=== PATIENT | female | born 1985 | race Caucasian/White ===

== ENCOUNTER 2016-11-15 18:52 | Inpatient (IN) ==
[2016-11-15 19:24] LABS: Apearance,Urine CLOUDY (Clear); Bilirubin,Urine Negative (Negative); Blood, Urine Negative (Negative); Glucose,Urine (UA) Negative (Negative); Ketones,Urine 80 mg/dL (Negative); Mucus,Urine Occasional /LPF (Occasional); Nitrite,Urine Negative (Negative); Protein,Urine 30 MG/DL; RBC,Urine 1 /HPF (0-4); Squamous Epithelial Cell,Urine Few /HPF (0-10); Urine Color Yellow (Yellow); Urine Specific Gravity 1.023 (1.001-1.035); Urine Urobilinogen < 2.0 EU/DL (0.2-1.0); WBC,Urine 15 /HPF (0-6)
[2016-11-15] MEDS ORDERED: CITRIC ACID/SODIUM CITRATE 30 ML UDCUP PO ONE (20:23)
[2016-11-15] MEDS ORDERED: FAMOTIDINE 20 MG/2 ML VIAL IV ONE (20:23)
[2016-11-15] MEDS ORDERED: ceFAZolin 2,000 MG in SODIUM CHLORIDE 0.9% 100 ML IV ONE (20:23)
[2016-11-15] MEDS ORDERED: OXYTOCIN/LR 20 UNIT/1,000 ML BAG IV ONE ×2 (20:47→22:57)
[2016-11-15 20:53] LABS: Basophils % 0.1 % (0.0-0.8); Hematocrit 37.8 VOL% (35.7-47.0); Immature Granulocytes % 0.4 %; Immature Granulocytes Absolute 0.05 #; Lymphocytes # 0.6 10*3/uL (1.4-4.0); Lymphocytes % 4.8 % (21.3-54.2); Mean Corpuscular HGB Conc 31.7 GM/DL (32-36); Mean Corpuscular Hemoglobin 28 PG (27-34); Mean Corpuscular Volume 87.3 FL (87-102); Mean Platelet Volume 12.2 FL (9.6-12.0); Monocytes # 0.2 10*3/uL (0.11-0.8); Monocytes % 1.6 % (1.7-12.7); Neutrophils # 12.2 10*3/uL (1.4-7.4); Neutrophils % 93.1 % (38.7-73.9); Platelet Count 228 10*3/uL (130-400); Red Blood Count 4.33 10*6/uL (3.8-5.5); Red Cell Distribution Width 13.1 % (9.3-17.3); White Blood Count 13.1 10*3/uL (4.5-13.71)
[2016-11-15] MEDS: LACTATED RINGERS 1,000 ML IV SCH ×2 (21:00→21:26)
[2016-11-15 21:10] LABS: INR 0.9; PT Patient Result 9.4 SECS; Partial Thromboplastin Time 27.7 SECS (0-40)
[2016-11-15 21:15] LABS: Albumin 2.9 G/DL (3.4-5.0); Bilirubin,Total 0.5 MG/DL (0.2-1.0); Calcium 8.7 MG/DL (8.5-10.1); Osmolality,Calculated 281.1 MOS/KG (273-304); Total Protein 6.6 G/DL (6.4-8.3)
--- NOTE | 2016-11-15 21:35 | OB/GYN History & Physical ---
History of Present Illness History of present illness: Ms. Wheatley is a 31 year old female Pt. 31y/o @ 38+4wks with h/o previous delivery presents to labor and delivery with contractions and flu like symptoms since this am. Pt. denies any vaginal bleeding, leakage of fluid or decreased movement. Patient's care with Dr. 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 admit to labor and delivery 2. pt. previously scheduled for a repeat delivery with dr. Anthony. Will consent for repeat delivery with risk of bleeding, infection, bowel or bladder injury, hysterectomy. All questions answered. consent signed and witnessed. 3. labs 4. continous external monitoring. Current Visit: Yes (2) Anxiety Status: Acute Current Visit: Yes Results - Labs CBC & BMP: 11/15/16 20:42 11/15/16 20:45
[2016-11-15 21:38] LABS: Lymphocytes 4 % (20-55); Segmented Neutrophils 96 % (50-85); Total Cells Counted 100
[2016-11-15 21:39] LABS: Ovalocytes Slight; Platelet Estimate Adequate; Polychromasia Slight
[2016-11-15 22:30] LABS: Apearance,Urine Slightly Hazy (Clear); Bilirubin,Urine Negative (Negative); Blood, Urine Negative (Negative); Glucose,Urine (UA) Negative (Negative); Hyaline Casts,Urine 3 /LPF (0-3); Ketones,Urine 80 mg/dL (Negative); Mucus,Urine Occasional /LPF (Occasional); Nitrite,Urine Negative (Negative); Protein,Urine 30 MG/DL; RBC,Urine 3 /HPF (0-4); Squamous Epithelial Cell,Urine Occasional /HPF (0-10); Urine Color Yellow (Yellow); Urine Specific Gravity 1.024 (1.001-1.035); Urine Urobilinogen < 2.0 EU/DL (0.2-1.0); WBC,Urine 2 /HPF (0-6)
[2016-11-15] MEDS ORDERED: TISSUE ADHESIVE 1 EACH APPLICATOR TOP ONE ×2 (22:33→22:35)
--- NOTE | 2016-11-15 22:51 | Operative Note ---
Date of procedure: 11/15/16 Pre-op diagnosis: Pt. 31y/o @ 38+4 wks with hx of prev c/s x1 in early labor Post-op diagnosis: same Procedure: OPERATION: Repeat delivery x 2 and lysis of pelvic adhesion FINDINGS: A living male infant, vertex , RK position, weight 7lbs 4oz, scores 5 and 8, nuchal cord x 2, body cord x 1. DESCRIPTION OF PROCEDURE: The patient was brought to the operating room after her spinal preparation, and Cuello had been performed. The abdomen was prepped and draped in the normal sterile fashion and tested for analgesia. When found to be adequate, a low-abdominal Pfannenstiel incision was made with the first knife and carried down to the fascia with the bovie. The fascia was cleared of subcutaneous tissue. Bleeding points were clamped with hemostats and Bovie coagulated. The fascia was incised in the midline and extended laterally with curved Leon scissors. Najma clamps were placed on the fascial edge, anteriorly. The rectus muscles were by sharp dissection. The rectus muscles were divided in the midline by sharp dissection and adhesions lysed. The parietoperitoneum was grasped with hemostats and carefully entered and the incision extended with Metzenbaum scissors. The bladder blade was inserted. The visceroperitoneum was grasped with smooth pickups, entered with Metzenbaum scissors, and extended laterally. The bladder flap was created by gentle blunt dissection and placed behind the bladder blade. The lower uterine segment was carefully incised with a scalpel and extended laterally with bandage scissors. A living male infant was delivered atraumatically from the vertex presentation. The baby was suctioned and cried immediately, and was handed to the pediatric team in attendance. The placenta was delivered with gentle uterine massage. The uterus was explored with a wet lap sponge and found to be clear of membranes. The angles of the incision were sutured 0 vicryl in a locked running fashion. Hemostasis was carefully checked and found to be satisfactory. The fallopian tubes and ovaries were inspected and found to be normal bilaterally. Interceed was then placed over the uterine incision. The peritoneum was approximated using 2. 0 chromic in a running fashion. The muscle was reapproximated using 2.0 chromic in an interrupted fashion. The fascia was closed with 0-Vicryl in a running fashion. The subcutaneous tissue was approximated with interrupted 2-0 plain catgut. The skin was closed in a subcuticular fashion with 4.0 monocryl. The patient was transferred to the recovery room in good condition. Anesthesia: spinal Surgeon / Physician: Marj Kincaid Estimated blood loss: other (700cc) Specimens: other (placenta, cord, membranes) Condition: stable Disposition: observation Results - Labs CBC & BMP: 11/15/16 20:42 11/15/16 20:45 Discharge Plan - Discharge Medications No Action Multivitamin () [ Vitamin] 1 tablet PO DAILY - Follow Up or Referral - Forms/Instructions
--- NOTE | 2016-11-15 22:54 | Anesthesia ---
Anesthesia Post OP - Post Ansesthetic Evaluation Patient seen in post op: Yes Resp: within normal limits CV: within normal limits Mental: within normal limits Temp: within normal limits Vyzy-[id number]: within normal limits Nausea and Vomiting: within normal limits Pain: within normal limits
[2016-11-15] MEDS ORDERED: fentaNYL 100 MCG/2 ML VIAL ONE (22:55)
[2016-11-15] MEDS ORDERED: MORPHINE 10 MG/10 ML VIAL ONE (22:56)
[2016-11-15] MEDS ORDERED: RHO(D) IMMUNE GLOBULIN 300 MCG SYRINGE IM ONE (22:57)
[2016-11-15] MEDS ORDERED: ACETAMINOPHEN 325 MG TABLET PO PRN (22:57)
[2016-11-15] MEDS ORDERED: SIMETHICONE CHEW 80 MG TABLET PO PRN (22:57)
[2016-11-15] MEDS ORDERED: MAGNESIUM HYDROXIDE SUSP 30 ML UDCUP PO PRN (22:57)
[2016-11-15] MEDS ORDERED: ONDANSETRON 4 MG/2 ML VIAL IV PRN (22:57)
[2016-11-15] MEDS ORDERED: LACTATED RINGERS 1,000 ML IV SCH (23:00)
[2016-11-15] MEDS ORDERED: HYDROmorphone 2 MG/1 ML VIAL IV PRN (23:47)
[2016-11-15] MEDS ORDERED: MEPERIDINE 25 MG/1 ML VIAL IV ONE (23:47)
[2016-11-16 06:23] LABS: Basophils % 0.3 % (0.0-0.8); Hematocrit 29.4 VOL% (35.7-47.0); Immature Granulocytes % 0.4 %; Immature Granulocytes Absolute 0.04 #; Lymphocytes # 0.9 10*3/uL (1.4-4.0); Mean Corpuscular HGB Conc 32.3 GM/DL (32-36); Mean Corpuscular Hemoglobin 28 PG (27-34); Mean Corpuscular Volume 86.7 FL (87-102); Monocytes # 0.5 10*3/uL (0.11-0.8); Neutrophils # 8.6 10*3/uL (1.4-7.4); Neutrophils % 85.3 % (38.7-73.9); White Blood Count 10.1 10*3/uL (4.5-13.71)
[2016-11-16 06:36] LABS: Hemoglobin 9.5 GM/DL (12.0-16.0); Platelet Count 167 10*3/uL (130-400); Red Blood Count 3.39 10*6/uL (3.8-5.5)
[2016-11-16] MEDS: LACTATED RINGERS 1,000 ML IV SCH (08:30)
[2016-11-16] MEDS: MULTIVITAMIN (PRENATAL) TABLET PO SCH (09:57)
[2016-11-16] MEDS: DOCUSATE SODIUM 100 MG CAPSULE PO SCH ×2 (09:57→19:35)
[2016-11-16] MEDS: IBUPROFEN 800 MG TABLET PO PRN ×2 (12:25→22:30)
[2016-11-16] MEDS ORDERED: HYDROCORTISONE 1% CREAM 28 GM TUBE TOP PRN (12:43)
--- NOTE | 2016-11-16 13:27 | OB/GYN Progress Note ---
Assessment and Plan (1) Previous delivery affecting , antepartum Status: Acute Assessment and plan: 1. ambulate 2. incentive spirometer 3. pain management. 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 seen by bedside, denies any complaints. no nausea or vomiting. no fever or chills. no chest pain or shortness of breath. Pt. ambulating and tolerating regular diet. 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[employer] - Constitutional Vitals: Vital Signs Temp Pulse Resp BP Pulse Ox 11/16/16 12:00 99.3 F 86 18 132/89 97 11/16/16 08:00 97.8 F 73 18 118/70 95 11/16/16 04:00 99.4 F 100 H 18 135/82 98 11/16/16 03:15 92 H 20 130/78 99 11/16/16 02:15 83 18 124/67 99 11/16/16 01:45 91 H 18 128/70 99 11/16/16 01:15 99.2 F 99 H 20 129/73 99 11/16/16 00:55 99.1 F 81 18 123/70 97 General appearance: no acute distress - Respiratory Respiratory exam: Present: clear to auscultation bilaterally - Cardiovascular Cardiovascular exam: Present: regular rate and rhythm - GI/Abdominal GI/Abdominal exam: Present: normal bowel sounds - Extremities Exam Extremities exam: Present: normal inspection (Skin incision: clean/dry/intact) Results - Labs CBC & BMP: 11/16/16 05:25 11/15/16 20:45
[2016-11-17] MEDS: IBUPROFEN 800 MG TABLET PO PRN (07:36)
--- NOTE | 2016-11-17 09:00 | OB/GYN Progress Note ---
Assessment and Plan (1) Previous delivery affecting , antepartum Status: Acute Assessment and plan: POD#2 s/p repeat . R/B/C/A of a circumcision were reviewed with the pt . th pt desires to go home today. 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 she is eating and voiding. 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 - Constitutional Vitals: Vital Signs Temp Pulse Resp BP Pulse Ox 11/17/16 07:36 [id number] F H 11/17/16 07:14 96.7 F L 78 18 115/75 97 11/17/16 04:00 99.8 F H 81 18 122/74 99 11/17/16 00:00 98.2 F 79 18 114/69 99 11/16/16 19:35 97.8 F 93 H 20 137/89 99 11/16/16 16:00 97.5 F L 93 H 20 131/86 98 11/16/16 12:00 99.3 F 86 18 132/89 97 General appearance: normal weight, no acute distress - Respiratory Respiratory exam: Absent: accessory muscle use - Cardiovascular Cardiovascular exam: Present: regular rate and rhythm - GI/Abdominal GI/Abdominal exam: Absent: guarding, rebound, soft - Extremities Exam Extremities exam: Absent: calf tenderness - Neurological Exam Neurological exam: Present: alert, oriented X3 - Psychiatric Psychiatric exam: Present: normal affect, normal mood Results - Labs CBC & BMP: 11/16/16 05:25 11/15/16 20:45
[2016-11-17] MEDS: MULTIVITAMIN (PRENATAL) TABLET PO SCH (09:29)
[2016-11-17] MEDS: DOCUSATE SODIUM 100 MG CAPSULE PO SCH (09:29)
[2016-11-17 11:59] VITALS: BP 119/74
--- NOTE | 2016-11-17 13:47 | Discharge Summary ---
Hospital Course - Hospital Course Hospital Course: the pt was admitted with gastroenteritis/flu like symptoms and was noted to be samara. Due to her history of a prior a repeat was done without complications. the pt asked to go home on POD#2 Diagnosis - Discharge Diagnosis (1) Previous delivery affecting , antepartum Status: Acute Specialty Discharge - Follow Up or Referrals Follow up with: Rosie Alex MD [Primary Care Provider] - 1 Week Discharge Plan - Discharge Data Disposition: Disch To Home/Self Care Condition at Discharge: Stable Discharge Diet: advance to your usual diet Activity: no lifting Hygiene: may shower Weight Bearing at Discharge: full weight bearing Driving: not until seen by doctor Contact your physician if you experience:: fever over 101, Difficulty voiding, Redness or swelling, Nausea/Vomiting, Shortness of breath, Bleeding, pain uncontrolled by pain medications - Discharge Medications New HYDROcodone/ACETAMIN 5-325 [[place] 5-325] 1 - 2 tablet PO Q6H PRN #30 tablet PRN Reason: Abdominal Pain No Action Multivitamin () [ Vitamin] 1 tablet PO DAILY - Follow Up or Referral - Forms/Instructions Instructions: Section (DC), Depression (GEN), Acute Wound Care (DC), Bleeding (DC) Exam - Constitutional Vitals: Period Temp Pulse Resp BP Sys/Bello Pulse Ox Last 24 Hr 96.7 [id number] F 78-93 16-20 114-137/69-89 95-99 DS: Provider Date of admission: 11/15/16 20:25 Primary care physician: Rosie Clements- Attending physician on admission: Marj Kincaid, Consults: 11/15/16 20:25 Consult to Anesthesiology [CONS] Routine Consulting Provider: Reason for Anesthesiology: Pre-op Clearance 11/15/16 22:57 Consult to Store Administrator [CONS] Routine Consult Store Administrator: Breast Feeding Discharging clinician: Rosie Clements- Expected date of discharge: 11/17/16
--- NOTE | 2016-11-18 11:18 | Pathology Report from [facility] ---
ACCESSION # : [id number] PATIENT NAME : Taras Kim ORDERING DR : Marj Kincaid MD CLINICAL HX: IUP @ 38.4 wks gestation, previous , early labor POST-OP DX: Same SPECIMEN INFO: Placenta GROSS DESCRIPTION: Received fresh labeled "TARAS KIM & PLACENTA" is a 377 gm placenta measuring 16.4 x 19.3 x 2.1 cm. The membranes are pink paiz and opaque. The umbilical cord measures 43.2 cm, contains three vessels and is pericentrally inserted. The surface is blue peguero with an area of subchorionic fibrin measuring up to 3 cm. The maternal surface is hemorrhagic with moderately disrupted cotyledons and adherent clotted blood. A few scattered fibrotic areas are present. No gross abnormalities are seen upon sectioning. Sections submitted A- membranes and cord, B- and maternal surfaces. DIAGNOSIS FOR TARAS KIM: PLACENTA, MEMBRANES, UMBILICAL CORD: Focal placental infarction with dystrophic calcification, mild intervillous blood. Tri-vessel umbilical cord, eccentrically inserted. Membranes with focal acute and chronic inflammation. SERVICE DATE: 11/17/2016 REPORT DATE: 11/18/2016 PATHOLOGIST: Madan Ureña
== END 2016-11-17 16:20 | disposition home or self-care (01) | DRG 766 ==
LOC: N.LDOUT 18:52 → N.LD 18:56 → N.OB 11-16 01:21
PROVIDERS: ADMIT Obstetrics & Gynecology; ATTEND Obstetrics & Gynecology
PROC: LDCSECT (ICD-10-PCS; 2016-11-15 21:20)

== ENCOUNTER 2020-09-11 05:51 | Inpatient (IN) ==
[2020-09-11] MEDS ORDERED: FAMOTIDINE 20 MG/2 ML VIAL IV ONE (06:07)
[2020-09-11] MEDS ORDERED: ceFAZolin 2,000 MG in PREMIX 1 EACH IV ONE (06:07)
[2020-09-11] MEDS ORDERED: CITRIC ACID/SODIUM CITRATE 30 ML UDCUP PO ONE (06:07)
[2020-09-11] MEDS ORDERED: LACTATED RINGERS 1,000 ML IV SCH ×2 (06:30→09:00)
[2020-09-11] MEDS ORDERED: MORPHINE 10 MG/10 ML VIAL ONE (06:46)
[2020-09-11] MEDS ORDERED: BUPIVACAINE SPINAL 0.75% 2 ML AMP SPINAL ONE (06:46)
[2020-09-11] MEDS ORDERED: fentaNYL 100 MCG/2 ML VIAL ONE (06:46)
[2020-09-11] MEDS ORDERED: ONDANSETRON 4 MG/2 ML VIAL ONE ×2 (06:46→08:08)
[2020-09-11 06:50] LABS: Basophils # 0.1 10*3/uL (0.0-0.2); Basophils % 0.7 % (0.0-0.8); Eosinophils # 0.2 10*3/uL (0.0-0.87); Eosinophils % 2.3 % (0.00-10.9); Hematocrit 39.7 VOL% (35.7-47.0); Hemoglobin 14.1 GM/DL (12.0-16.0); Immature Granulocytes % 0.4 %; Immature Granulocytes Absolute 0.04 #; Lymphocytes # 1.7 10*3/uL (1.4-4.0); Mean Corpuscular HGB Conc 35.5 GM/DL (32-36); Mean Corpuscular Volume 91.3 FL (87-102); Mean Platelet Volume 10.9 FL (9.6-12.0); Neutrophils % 71.6 % (38.7-73.9); Platelet Count 198 T/CUMM (130-400); Red Blood Count 4.35 MC/CUMM (3.8-5.5); Red Cell Distribution Width 12.5 % (9.3-17.3)
[2020-09-11 07:08] LABS: Alanine Aminotransferase 12 U/L (13-56); Albumin 2.6 G/DL (3.4-5.0); Alkaline Phosphatase 280 U/L (45-117); Aspartate Amino Transferase 22 U/L (0-37); Bilirubin,Total < 0.39 MG/DL (0.2-1.0); Blood Urea Nitrogen 17 MG/DL (7-18); Calcium 9.5 MG/DL (8.5-10.1); Estimated Glom Filtration Rate 84 ML/MIN; Glucose 79 MG/DL (74-106); Osmolality,Calculated 273.8 MOS/KG (273-304); Total Protein 7.3 G/DL (6.4-8.3)
[2020-09-11] MEDS ORDERED: TRANEXAMIC ACID 1,000 MG/10 ML VIAL ONE (07:21)
[2020-09-11] MEDS ORDERED: miSOPROStoL 200 MCG TABLET ONE (07:21)
[2020-09-11] MEDS ORDERED: METHYLERGONOVINE 0.2 MG/1 ML AMP ONE (07:22)
[2020-09-11] MEDS ORDERED: CARBOPROST TROMETHAMINE 250 MCG/ML AMP IM ONE (07:22)
[2020-09-11] MEDS ORDERED: OXYTOCIN/LR 20 UNIT/1,000 ML BAG IV ONE ×2 (07:22→08:54)
[2020-09-11] MEDS ORDERED: PHENYLEPHRINE 1 MG/10 ML SYRINGE IV ONE (08:08)
[2020-09-11] MEDS ORDERED: KETOROLAC 30 MG/1 ML VIAL ONE (08:11)
[2020-09-11 08:27] LABS: Cord Arterial Blood HCO3 22.9 MMOL/L
[2020-09-11 08:30] LABS: Cord Venous Blood HCO3 23.3 MMOL/L; Cord Venous Blood PCO2 46.5 MMHG; Cord Venous Blood PO2 31.5
[2020-09-11 08:34] LABS: Bilirubin,Urine Negative (Negative); Blood, Urine Negative (Negative); Glucose,Urine (UA) Negative (Negative); Ketones,Urine 5 mg/dL (Negative); Mucus,Urine Occasional /LPF (Occasional); Nitrite,Urine Negative (Negative); Protein,Urine Negative; RBC,Urine <1 /HPF (0-4); Squamous Epithelial Cell,Urine Occasional /HPF (0-10); Urine Appearance CLEAR (Clear); Urine Color Yellow (Yellow); Urine Specific Gravity 1.021 (1.001-1.035); Urine Urobilinogen < 2.0 EU/DL (0.2-1.0); WBC,Urine 1 /HPF (0-6)
[2020-09-11] MEDS ORDERED: ONDANSETRON 4 MG/2 ML VIAL IV PRN (08:54)
[2020-09-11] MEDS ORDERED: RHO(D) IMMUNE GLOBULIN 300 MCG SYRINGE IM ONE (08:54)
[2020-09-11] MEDS ORDERED: ACETAMINOPHEN 325 MG TABLET PO PRN (08:54)
[2020-09-11] MEDS ORDERED: ceFAZolin 1,000 MG in SYRINGE 1 EACH IV SCH ×3 (09:00→23:30)
[2020-09-11] MEDS ORDERED: HYDROmorphone 2 MG/1 ML VIAL IV PRN (09:09)
[2020-09-11] MEDS ORDERED: diphenhydrAMINE 50 MG/1 ML VIAL IV PRN (09:09)
[2020-09-11] MEDS ORDERED: hydrOXYzine HCL 25 MG/1 ML VIAL IM PRN (09:09)
[2020-09-11] MEDS: KETOROLAC 30 MG/1 ML VIAL IV SCH ×2 (15:01→21:08)
[2020-09-11] MEDS: DOCUSATE SODIUM 100 MG CAPSULE PO SCH ×2 (21:08→23:01)
[2020-09-12] MEDS: KETOROLAC 30 MG/1 ML VIAL IV SCH (03:21)
[2020-09-12 03:59] LABS: Basophils # 0.1 10*3/uL (0.0-0.2); Basophils % 0.6 % (0.0-0.8); Eosinophils # 0.3 10*3/uL (0.0-0.87); Eosinophils % 2.7 % (0.00-10.9); Hematocrit 31.9 VOL% (35.7-47.0); Hemoglobin 10.9 GM/DL (12.0-16.0); Immature Granulocytes % 0.4 %; Immature Granulocytes Absolute 0.04 #; Lymphocytes # 1.6 10*3/uL (1.4-4.0); Mean Corpuscular HGB Conc 34.2 GM/DL (32-36); Mean Corpuscular Volume 93.5 FL (87-102); Monocytes % 4.9 % (1.7-12.7); Neutrophils % 77.4 % (38.7-73.9); Platelet Count 159 T/CUMM (130-400); Red Blood Count 3.41 MC/CUMM (3.8-5.5); Red Cell Distribution Width 12.6 % (9.3-17.3); White Blood Count 11.3 T/CUMM (4-12)
[2020-09-12] MEDS: MAGNESIUM HYDROXIDE SUSP 30 ML UDCUP PO PRN (08:02)
[2020-09-12] MEDS: DOCUSATE SODIUM 100 MG CAPSULE PO SCH ×2 (08:03→20:55)
[2020-09-12] MEDS: oxyCODONE/ACETAMINOPHEN 5-325 MG TABLET PO PRN ×4 (08:03→20:53)
[2020-09-12] MEDS: SIMETHICONE CHEW 80 MG TABLET PO PRN ×2 (08:03→15:00)
[2020-09-12] MEDS: MULTIVITAMIN (PRENATAL) TABLET PO SCH (08:03)
[2020-09-12] MEDS: IBUPROFEN 800 MG TABLET PO PRN ×3 (08:04→23:56)
[2020-09-13] MEDS: oxyCODONE/ACETAMINOPHEN 5-325 MG TABLET PO PRN ×2 (02:05→07:59)
[2020-09-13 07:32] VITALS: BP 111/67
[2020-09-13] MEDS: SIMETHICONE CHEW 80 MG TABLET PO PRN (08:00)
[2020-09-13] MEDS: MULTIVITAMIN (PRENATAL) TABLET PO SCH (08:00)
[2020-09-13] MEDS: DOCUSATE SODIUM 100 MG CAPSULE PO SCH (08:00)
[2020-09-13] MEDS: MAGNESIUM HYDROXIDE SUSP 30 ML UDCUP PO PRN (08:01)
[2020-09-13] MEDS: IBUPROFEN 800 MG TABLET PO PRN (10:10)
== END 2020-09-13 12:25 | disposition home or self-care (01) | DRG 785 ==
LOC: N.LD 05:51 → N.OB 12:09
PROVIDERS: ADMIT Obstetrics & Gynecology; ATTEND Obstetrics & Gynecology